=== PATIENT | female | born 1965 | race Caucasian/White ===

== ENCOUNTER → 2021-05-26 12:54 | Outpatient (BNVA) | payer OTHER, SELFPAY | PROVIDERS: PCP Internal Medicine; Referring Provider Internal Medicine; Visit Provider Physician Assistant ==

== ENCOUNTER → 2021-06-19 08:13 | Outpatient (BNVA) | payer OTHER, SELFPAY | PROVIDERS: PCP Internal Medicine; Visit Provider Surgery ==

== ENCOUNTER 2021-06-30 09:17 | Outpatient (REF) | payer OTHER, SELFPAY ==
--- NOTE | 2021-06-30 09:27 | ECG_ITS ---
Test Reason : TYPE 2 DM Blood Pressure : / mmHG Vent. Rate : 086 BPM Atrial Rate : 086 BPM P-R Int : 148 ms QRS Dur : 100 ms QT Int : 388 ms P-R-T Axes : 019 035 028 degrees QTc Int : 464 ms Normal sinus rhythm Inferior infarct , age undetermined Abnormal ECG No previous ECGs available Referred By: Tony Ferrara Electronically Signed By:JENN KELLEY MD
[2021-06-30 09:36] LABS: MANUAL DIFF FLAG NO
[2021-06-30 09:52] LABS: Basophils Percent Auto 0.4 % (0-2); Eosinophils Absolute Auto 0.1 X10*3/uL (0.0-0.4); Eosinophils Percent Auto 1.5 % (0-4); Hematocrit 39.9 % (37.0-47.0); Hemoglobin 12.7 g/dl (12.0-16.0); Imm Gran Abs Auto 0.05 X10*3/uL (0.00-0.03); Imm Gran Pct Auto 0.5 % (0.0-0.4); Lymphocytes Absolute Auto 2.8 X10*3/uL (1.2-4.9); Lymphocytes Percent Auto 29.9 % (20-40); Mean Corpuscular HGB Conc 31.8 g/dl (31.0-35.0); Mean Corpuscular Hemoglobin 27.4 pg (27.0-33.0); Mean Corpuscular Volume 86.2 fL (80.0-98.0); Mean Platelet Volume 10.2 fL (9.4-12.3); Monocytes Absolute Auto 0.5 X10*3/uL (0.1-1.2); Monocytes Percent Auto 5.2 % (2-11); Neutrophils Absolute Auto 5.9 x10*3/uL (2.0-8.3); Neutrophils Percent Auto 62.5 % (45-73); Platelet Count 298 X10*3/uL (160-400); Red Blood Count 4.63 X10*6/uL (4.20-5.50); Red Cell Distribution Width 13.8 % (11.0-16.0); White Blood Count 9.4 X10*3/uL (4.8-10.8)
[2021-06-30 10:42] LABS: Alanine Aminotransferase 12 U/L (0-31); Alkaline Phosphatase 103 U/L (39-117); Anion Gap 13 (12-20); Aspartate Amino Transferase 12 U/L (5-31); Bilirubin Total 0.5 mg/dL (0.0-1.0); Blood Urea Nitrogen 28 mg/dL (9-16); C Reactive Protein 3.62 mg/dL (< or = 0.50); Calcium 10.2 mg/dL (8.4-10.2); Carbon Dioxide 26 mmol/L (22-29); Chloride 102 mmol/L (96-108); Cholesterol 118 mg/dL; Estimated Glomerular Filt Rate > 60; Glucose Random 262 mg/dL (60-115); HDL Cholesterol 35 mg/dL; Iron 66 mcg/dL (30-160); LDL Cholesterol Calculated 58 mg/dl; Percent Iron Saturation 21 % (15-50); Potassium 4.6 mmol/L (3.3-5.1); Sodium 136 mmol/L (135-145); Total Iron Binding Capacity 312 mcg/dL (228-428); Total Protein 7.4 g/dL (6.5-8.0); Triglycerides 129 mg/dL; Unsaturated Iron Binding 246 ug/dL
[2021-06-30 11:08] LABS: Ferritin 254 ng/mL (10-250); TSH reflex Free T4 1.89 uIU/mL (0.32-4.0); Vitamin D 25-OH Total 23.8 ng/mL (>30)
[2021-06-30 11:15] LABS: Estimated Average Glucose 212 mg/dL
[2021-06-30 12:11] LABS: Insulin 14 uU/mL (2-29)
[2021-06-30 13:07] LABS: Folate 13.3 ng/mL (> or = 4.0); Vitamin B12 386 pg/mL (200-900)
[2021-07-01 14:23] LABS: H Pylori Breath Test Negative (Negative)
[2021-07-02 12:37] LABS: Calcium (PTHI) 10.2 mg/dL (8.6-10.4); PTHI 29 pg/mL (14-64)
[2021-07-05 00:07] LABS: Zinc 71 mcg/dL (60-130)
[2021-07-06 11:46] LABS: Vitamin A 64 mcg/dL (38-98)
[2021-07-06 14:05] LABS: Vitamin B1 15 nmol/L (8-30)
== END 2021-06-30 09:18 | disposition home or self-care (01) ==
LOC: HO.LAB 09:17
PROVIDERS: Visit Provider Surgery
DX: E11.9 Type 2 diabetes mellitus without complications (principal); E66.01 Morbid (severe) obesity due to excess calories; E78.5 Hyperlipidemia, unspecified; I10 Essential (primary) hypertension; Z79.4 Long term (current) use of insulin
CPT/HCPCS: 36415; 80053; 80061; 82306; 82607; 82728; 82746; 83013; 83036; 83525; 83540; 83970; 84425; 84443; 84590; 84630; 85025; 86140; 93005; 99211

== ENCOUNTER → 2021-07-17 08:14 | Outpatient (BNVA) | payer OTHER, SELFPAY | PROVIDERS: PCP Internal Medicine; Visit Provider Surgery | DX: Z13.89 Encounter for screening for other disorder (principal) ==

== ENCOUNTER → 2021-07-18 08:13 | Outpatient (BNVA) | payer OTHER, SELFPAY | PROVIDERS: PCP Internal Medicine; Visit Provider Dietitian, Registered | DX: E66.01 Morbid (severe) obesity due to excess calories (principal); E11.9 Type 2 diabetes mellitus without complications; Z79.4 Long term (current) use of insulin; Z68.41 Body mass index [BMI] 40.0-44.9, adult | CPT/HCPCS: 97802 ==

== ENCOUNTER 2021-08-01 09:39 | Outpatient (REF) | payer OTHER, SELFPAY ==
--- NOTE | ~2021-08-01 | XR_ITS ---
EXAMINATION: XR CHEST CLINICAL INFORMATION: Obesity COMPARISON: None TECHNIQUE: 2 views of the chest were obtained. FINDINGS: No significant abnormality is noted involving the heart, lungs, mediastinum, bony thorax or soft tissues. XR/XR chest 2V IMPRESSION: Unremarkable examination.
--- NOTE | ~2021-08-01 | FL_ITS ---
EXAMINATION: XR FLUOROSCOPY UPPER GI WITH AIR CLINICAL INFORMATION: Obesity COMPARISON: None TECHNIQUE: Upper GI was performed using thin and thick barium and effervescent granules FINDINGS: There is a small sliding-type hiatal hernia. There is mild gastroesophageal reflux. The stomach and duodenum are normal-appearing. No fold thickening, mass, ulcer or stricture is seen. FLUOROSCOPY TIME: 0.5 minutes DOSE AREA PRODUCT: 4.8 Magana per centimeter squared. 20 saved fluoroscopic images. FL/FL upper GI w air IMPRESSION: Mild gastroesophageal reflux and small sliding-type hiatal hernia.
--- NOTE | ~2021-08-01 | US_ITS ---
EXAMINATION: US COMPLETE ABDOMEN WITH LIVER ELASTOGRAPHY CLINICAL INFORMATION: Diabetes and obesity. COMPARISON: None TECHNIQUE: Real-time imaging of the abdominal viscera. Noninvasive ultrasound liver fibrosis assessment is performed using Chapo ElastPQ point quantification shear wave elastography (2D-SWE) with a C5-2 MHz transducer. Multiple elastography samples are obtained. FINDINGS: PANCREAS: Visualized head and the body of the pancreas is unremarkable. The tail is not visualized. ABDOMINAL AORTA: The proximal, middle, and distal aortic segments are normal in caliber. INFERIOR VENA CAVA: Visualized portions are normal. LIVER: Normal. The liver demonstrates normal size, contour and echogenicity. No focal lesion or intrahepatic biliary duct dilatation. The right lobe measures 15.8 cm in length. The left lobe measures 11.5 cm in length. Portal flow is hepatopedal. Shear wave liver elastography median stiffness is 1.53 m/s (reference: normal median stiffness is 1.3 m/s or less). IQR/median stiffness to assess sampling precision is 0.21 (reference: good quality data set is IQR/median stiffness of 0.15 or less). GALLBLADDER: Normal. The gallbladder is physiologically distended without evidence of stones, sludge, polyps, wall thickening or pericholecystic fluid. COMMON BILE DUCT: Normal in caliber measuring 0.3 cm in diameter. RIGHT KIDNEY: There is mild pelvic fullness. No hydroureteronephrosis seen. No renal calculi or focal parenchymal lesions. The kidney measures 11.6 cm in maximum dimension. LEFT KIDNEY: Normal. No hydronephrosis. No renal calculi or focal parenchymal lesions. The kidney measures 10.4 cm in maximum dimension. SPLEEN: Normal. The spleen measures 11.8 cm in maximum dimension. FREE FLUID: None. US/US abdomen comp w elastography IMPRESSION: 1. Mild pelvic fullness right kidney. No echogenic stones. Partially visualized pancreas is unremarkable. 2. Liver elastography: Median liver stiffness 1.53 m/s suggestive of cACLD ruled out. REFERENCE: Society of Radiologists in Ultrasound Liver Stiffness Thresholds (2020): LIVER STIFFNESS THRESHOLDS: *Liver Stiffness equal or less than 1.3 m/s: High probability of being normal. *Liver Stiffness less than 1.7 m/s: In the absence of other known clinical signs, rules out compensated advanced chronic liver disease. *Liver Stiffness 1.7-2.1 m/s: Suggestive of compensated advanced chronic liver disease but need further test for confirmation. *Liver Stiffness over 2.1 m/s: Rules in compensated advanced chronic liver disease. *Liver Stiffness over 2.4 m/s: Suggestive of clinically significant portal hypertension. QUALITY OF DATA SET: *IQR/Median value equal or less than 0.15 implies a quality data set. *IQR/Median value over 0.15 implies a poor quality data set. SIGNIFICANT CHANGE FROM PRIOR EXAM: Significant change if liver stiffness measurement is 10% or greater from prior exam. OTHER CONSIDERATIONS: The stage of liver fibrosis may be overestimated in the setting of acute hepatitis, liver inflammation, elevated liver function tests, hepatic vascular congestion, obstructive cholestasis, non-fasting state, and infiltrative diseases such as amyloidosis and lymphoma. In some patients with NAFLD, the liver stiffness thresholds for compensated advanced chronic liver disease may be lower. In causes other than viral hepatitis and NAFLD, liver stiffness thresholds are not well established.
== END 2021-08-01 09:40 | disposition home or self-care (01) ==
LOC: HO.US 09:39
PROVIDERS: Visit Provider Surgery
DX: E11.9 Type 2 diabetes mellitus without complications (principal); E66.01 Morbid (severe) obesity due to excess calories; E78.5 Hyperlipidemia, unspecified; I10 Essential (primary) hypertension; Z79.4 Long term (current) use of insulin
CPT/HCPCS: 71046; 74246; 76705; 76981

== ENCOUNTER → 2021-08-18 08:06 | Outpatient (BNVA) | payer OTHER, SELFPAY | PROVIDERS: PCP Internal Medicine; Referring Provider Surgery; Visit Provider Dietitian, Registered | DX: E66.01 Morbid (severe) obesity due to excess calories (principal); Z68.41 Body mass index [BMI] 40.0-44.9, adult | CPT/HCPCS: 97803 ==

== ENCOUNTER → 2021-09-20 11:10 | Outpatient (BNVA) | payer OTHER, SELFPAY | PROVIDERS: PCP Internal Medicine; Referring Provider Surgery; Visit Provider Dietitian, Registered | DX: E66.01 Morbid (severe) obesity due to excess calories (principal); Z68.41 Body mass index [BMI] 40.0-44.9, adult | CPT/HCPCS: 97803 ==

== ENCOUNTER → 2021-09-29 07:42 | Outpatient (REF) | payer OTHER, SELFPAY ==
--- NOTE | 2021-09-29 07:49 | CA_ITS ---
Transthoracic Echocardiogram Patient (Last, First, Middle): Alka Cabrales J Gender: Female Date of : 1965 Age: 56 Procedure Date: 09/29/2021 Procedure Type: Transthoracic Echocardiogram Location: OP Height: 162.56 cm Weight: 107.05 kg BSA: 2.10 m2 Heart Rate: bpm BP: 136 / 70 mmHg Cnmt: CHRISTOPHER Referring MD: Tony Ferrara MD Symptoms: R94.31 - Abnormal electrocardiogram [ECG] [EKG] Study Quality: Fair/Contrast ECG Rhythm: Sinus Conclusions: - The left ventricular systolic function is normal. The calculated ejection fraction is 59% by biplane method. - There is evidence of regional wall motion abnormalities. - No obvious valvular pathology seen on this study. Findings Procedure Information Contrast agent, definity, is being given per protocol without apparent complications. Left Ventricle Normal left ventricular cavity size. There is mildly increased left ventricular wall thickness. The left ventricular systolic function is normal. The calculated ejection fraction is 59% by biplane method. There is evidence of regional wall motion abnormalities. Diastolic function is normal for age. Wall Motion Rest Echo Findings The mid inferior segment is hypokinetic. The basal inferior segment is akinetic. Right Ventricle Normal right ventricular cavity size and systolic function. Atria Both atria are normal in size. Aortic Valve There is a normal trileaflet aortic valve. There is no aortic valve stenosis. There is no aortic valve regurgitation. Mitral Valve The mitral valve appears normal. There is no mitral valve regurgitation. There is no mitral valve stenosis. Pulmonic Valve The pulmonic valve was not well visualized. Tricuspid Valve There is no tricuspid valve regurgitation. Tricuspid regurgitation envelope is inadequate for calculation of right ventricular systolic pressure. Great Vessels The aortic annulus, sinuses of valsalva, asc aorta, and aortic arch are normal in size. Venous The inferior vena cava is normal in size. Pericardium/Pleural There is no evidence of pericardial effusion. Prior Study Comparison No prior study available for comparison. Recommendations, Care & Conclusions No obvious valvular pathology seen on this study. Measurements 2D Linear Measurements IVSd: 1.04 0.6-0.9/0.6-1.0 cm LVIDd: 3.92 3.9-5.3/4.2-5.9 cm LVIDd Index: 1.87 2.4-3.2/2.2-3.1 cm/m2 LVIDs: 2.79 2.0-3.6 cm LVPWd: 1.03 0.7-1.1 cm LA Diam: 3.40 2.7-3.8/3.0-4.0 cm LAIDs Index: 1.62 1.5-2.3 cm/m2 LV Mass: 160.87 67-162/88-224 g LV Mass Index: 76.61 43-95/49-115 g/m2 LVOT Diam: 2.10 3.0+(-)1.3 cm 2D Systolic Function EF 4C: 61.60 >55% EF 2C: 55.60 >55% EF BiP: 58.70 >55% Mitral Valve MV Pk E: 1.04 MV PK A: 0.96 MV Decel Time: 99.00 E/A: 1.10 E'Lateral: 11.50 E'Medial: 7.94 E/E' Med: 13.10 E/E' Lat: 9.00 PHT: 29.00 MVA PHT: 7.59 Decel Nash: 10.45 Aortic Valve AoV Pk Francisco Javier: 1.58 AoV Mn Francisco Javier: 1.10 AoV VTI: 0.33 AoV Pk Grad: 10.00 Aov Mn Grad: 5.00 MERARY Cont.VTI: 2.29 LVOT LVOT Pk Francisco Javier: 0.91 LVOT Mn Francisco Javier: 0.65 LVOT VTI: 0.22 LVOT Pk Grad: 3.00 LVOT Mn Grad: 2.00 LVOT Diam: 2.10 LVOT Area: 3.46 Diastolic Function MV Pk E: 1.04 MV Pk A: 0.96 E/A: 1.10 E'Medial: 7.94 E/E' Med: 13.10 E' Laterial: 11.50 E/E' Lat: 9.00 Right Ventricle TAPSE (mm): 19.50 TVS' Francisco Javier: 13.20 Tricuspid Valve RA Press: 3.00 Great Vessels Aorta Ao Asc: 2.60 2.1-3.4 cm Ao Arch: 2.20 Updated in Other Vendor System with Status of Final Arik Fernandez MD electronically signed on 09/30/2021 2:48:25 PM with status of Final
== END ==
LOC: HO.CARD 07:42
PROVIDERS: Visit Provider Surgery
DX: R94.31 Abnormal electrocardiogram [ECG] [EKG] (principal)
CPT/HCPCS: 93306; Q9957

== ENCOUNTER → 2021-10-04 08:08 | Outpatient (REF) | payer OTHER, SELFPAY ==
--- NOTE | ~2021-10-04 | NM_ITS ---
Lexiscan Myocardial perfusion study Indication: Preoperative cardiovascular evaluation Technique: The patient was brought in for a Lexiscan perfusion study on 10/04/2021 and was injected 0.4 mg of Lexiscan intravenously. Within a minute of this injection 40 mCi of sestamibi was given intravenously. Images were obtained using the SPECT gamma camera interlaced with the gating device. Images were obtained in supine position. Resting perfusion study was performed on 10/05/2021. Patient was administered 40 mCi of sestamibi intravenously at rest. Images were then obtained in supine position. Total DLP 168mGy-cm. Images were processed with the software and compared side to side in short axis, horizontal long axis and vertical long axis views. Findings: Raw acquisition was reviewed. The stress perfusion study showed severely diminished to absent tracer uptake along the inferior wall. There is not much improvement with CT attenuation correction. The gated study shows diminished LV systolic function with calculated LVEF of 44%. LV cavity is normal in size. The gated study shows inferior akinesis. Resting study shows markedly diminished tracer uptake along the inferior wall. Gating at rest reveals inferior akinesis with ejection fraction at 44%. The findings are consistent with mostly fixed inferior perfusion defect with minimal reversibility. NM/NM roya perf SPECT rest & str Impression: 1. Myocardial perfusion imaging study shows inferior myocardial infarction with minimal ischemia. 2. Gated LVEF is 44% during stress and rest. 3. Transient ischemic dilatation not present. EKG component of the test reported separately.
--- NOTE | 2021-10-04 08:12 | CA_ITS ---
Acquisition Time: 2021-10-04 08:35:33 Total Exercise Time: 00:02:00 Test Indications: Abnormal ECG Medications: ATORVASTATIN EMPAGLIFLOZIN INSULIN LISINOPRIL METFORMIN Protocol: LEXISCAN Max HR: 118 BPM 71% of Pred: 166 BPM Max BP: 142/068 mmHG Max Work Load: 1.0 METS Pharmacological stress test with Lexiscan injection, while sitting and kicking her legs, without anginal symptoms, without arrythmia, with normotensive response to injection, with nondiagnostic EKG for ischemia. In recovery she reported dizziness that was treated with Aminophylline 75mg IVP to reverse Lexiscan with resolution of symptom. Nuclear images pending. Test reviewed with Dr Conde. Referred By: Tony Ferrara Overread By: EMERSON CELESTIN
== END ==
LOC: HO.CARD 08:08
PROVIDERS: Visit Provider Surgery
DX: R94.31 Abnormal electrocardiogram [ECG] [EKG] (principal)
CPT/HCPCS: 78452; 93017; A9500; J0280; J2785

== ENCOUNTER 2022-03-01 08:14 | Outpatient (REF) | payer OTHER, SELFPAY ==
[2022-03-01 10:03] LABS: INTERNATIONAL NORM RATIO 0.9 (0.9-1.1); Prothrombin Time 10.5 SEC (10.0-13.1)
[2022-03-01 10:16] LABS: Anion Gap 18 (12-20); Blood Urea Nitrogen 17 mg/dL (9-16); Calcium 9.9 mg/dL (8.4-10.2); Carbon Dioxide 22 mmol/L (22-29); Chloride 102 mmol/L (96-108); Estimated Glomerular Filt Rate > 60; Glucose Random 273 mg/dL (60-115); Potassium 4.1 mmol/L (3.3-5.1); Sodium 138 mmol/L (135-145)
[2022-03-01 13:49] LABS: Hematocrit 40.1 % (37.0-47.0); Hemoglobin 13.3 g/dl (12.0-16.0); Mean Corpuscular HGB Conc 33.2 g/dl (31.0-35.0); Mean Corpuscular Hemoglobin 27.9 pg (27.0-33.0); Mean Corpuscular Volume 84.1 fL (80.0-98.0); Mean Platelet Volume 10.6 fL (9.4-12.3); Platelet Count 316 X10*3/uL (160-400); Red Blood Count 4.77 X10*6/uL (4.20-5.50); Red Cell Distribution Width 14.6 % (11.0-16.0); White Blood Count 8.4 X10*3/uL (4.8-10.8)
== END 2022-03-01 08:15 | disposition home or self-care (01) ==
LOC: HO.LAB 08:14
PROVIDERS: PCP Internal Medicine; Referring Provider Surgery; Visit Provider Internal Medicine
DX: Z01.818 Encounter for other preprocedural examination (principal); I25.10 Atherosclerotic heart disease of native coronary artery without angina pectoris; E66.01 Morbid (severe) obesity due to excess calories; I10 Essential (primary) hypertension; E78.5 Hyperlipidemia, unspecified; E11.9 Type 2 diabetes mellitus without complications; Z79.4 Long term (current) use of insulin
CPT/HCPCS: 36415; 80048; 85027; 85610; 93005; 99202

== ENCOUNTER → 2022-05-22 14:36 | Outpatient (BNVA) | payer OTHER, SELFPAY | PROVIDERS: PCP Internal Medicine; Visit Provider Nurse Practitioner Family | DX: I25.10 Atherosclerotic heart disease of native coronary artery without angina pectoris (principal); I25.2 Old myocardial infarction; I10 Essential (primary) hypertension; E78.5 Hyperlipidemia, unspecified; Z98.890 Other specified postprocedural states | CPT/HCPCS: 99212 ==

== ENCOUNTER → 2022-09-10 14:26 | Outpatient (BNVA) | payer MEDICAID, SELFPAY | PROVIDERS: PCP Physician Assistant; Referring Provider Internal Medicine; Visit Provider Internal Medicine | DX: I25.10 Atherosclerotic heart disease of native coronary artery without angina pectoris (principal); I10 Essential (primary) hypertension; E11.9 Type 2 diabetes mellitus without complications; E66.01 Morbid (severe) obesity due to excess calories; Z68.41 Body mass index [BMI] 40.0-44.9, adult; Z79.4 Long term (current) use of insulin; Z79.82 Long term (current) use of aspirin | CPT/HCPCS: 99212 ==

== ENCOUNTER 2023-04-12 12:41 | Outpatient (AMB) | payer MEDICAID, SELFPAY ==
[2023-04-12 12:57] VITALS: BP 140/62; PULSE 71; BMI 42.9
--- NOTE | 2023-04-12 12:57 | A.OFFVIS_ITS ---
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 Press Set Up Operator Required: Yes Gravure Press Set Up Operator Language: Set Up Mechanic Stamping Machines Name: melody [id number] YAHIR Allergies No Known Allergies Allergy (Verified 04/12/23 13:00) Medication List - Last Reconciled 04/12/23 by Mercedes Rosario NP-C aspirin 81 mg PO DAILY atorvastatin 20 mg PO DAILY empagliflozin (Jardiance) 10 mg PO DAILY insulin regular human (Humulin R Regular U-100 Insulin) 20 units subcut BID metformin 500 mg PO BID metoprolol succinate ER 25 mg PO DAILY metoprolol succinate ER 25 mg PO DAILY oxycodone 5 mg PO Q4H PRN senna mg PO HPI 6 month follow up HPI Details Alka is a 57-year-old female with past medical history of morbid obesity, hypertension, hyperlipidemia, diabetes, LAD stent who presents for follow up. Today she reports that she was seen in the [facility] emergency room in January with shock-like sensations to her left chest and arm. She ruled out for ACS at that time. Since then she has not had recurrent symptoms. She denies chest discomfort at rest or with activity. No heart palpitations, shortness of breath, presyncope, syncope, PND, orthopnea or edema. She is taking her meds as directed. She is mostly sedentary and does not engage in any routine physical activity. Family member present. 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 [facility], LAT[facility] Medical History Insulin dependent type 2 diabetes mellitus Hypertension Hyperlipidemia Morbid obesity Surgical History Status post cardiac catheterization Hx of vaginal surgery Family History Mother Kidney disease Father No problems noted. Sister Cervical cancer Social History Alcohol intake: never Patient Tobacco Use Status: Never used Tobacco Review of Systems Const All systems reviewed & are unremarkable except as noted in HPI and below ENT Denies dizziness Card Denies chest pain, Denies chest pain at rest, Denies chest pain with activity, Denies rapid heart rate, Denies pedal edema, Denies edema, Denies leg edema, Denies lightheadedness, Denies palpitations, Denies dyspnea, Denies dyspnea on exertion and Denies orthopnea Resp Denies cough, Denies dyspnea and Denies dyspnea on exertion GI Denies hematochezia and Denies change in stool character Musc Denies abnormal gait, Denies limited range of motion, Denies muscle cramps, Denies muscle weakness, Denies numbness, Denies radiating pain into limb, Denies stiffness and Denies tingling Neuro Denies abnormal gait, Denies dizziness, Denies numbness and Denies tingling Endo Denies palpitations Physical Exam Vital Signs: Last Vital Signs Pulse 71 04/12/23 12:57 BP 140/62 H 04/12/23 12:57 BMI result Body Mass Index 42.9 Const Other: morbidly obese General: cooperative, comfortable and no acute distress Orientation/consciousness: patient oriented x3 Neck Neck: Yes normal visual inspection Resp Effort & Inspection: normal respiratory effort Auscultation: clear to auscultation bilaterally, no rales, no rhonchi and no wheezes Cardio Jugular venous distension: no JVD Rate: regular rate Rhythm: regular rhythm Heart sounds: S1 normal heart sound present, S2 normal heart sound present, no murmurs and no rubs Neuro General: patient oriented x3 Extrem General: Yes normal to inspection Psych Appearance: grossly normal Mental Status: mental status grossly normal Speech and movement: Normal speech and movement present Office Procedures EKG Details: Today, read by me, normal sinus rhythm, possible inferior infarct, age undetermined, rate 71, QTC 458 milliseconds [id number], Complete Assessment & Plan Assessment & Plan (1) Status post cardiac catheterization: Comment: 03/20/22 @ [facility] -proximal to mid LAD 75-80% stenosis inter 1st diagonal, RCA 40- 50% stenosis, distal RCA occluded with left to right collaterals, 50% mid left circumflex stenosis. MIGUEL ANGEL placed to the mid to proximal LAD Code(s): Z98.890 - Other specified postprocedural states Plan: Had echocardiogram done 09/29/2021 as part of preop evaluation for bariatric surgery. It showed EF 59%, evidence of regional wall motion abnormality. A pharmacological nuclear stress test was done on 10/05/2021 showing inferior infarct, EF 44%, t.i.d. not present. Evidence of prior KS. She underwent a cardiac catheterization on 03/20/2022 showing significant stenosis in the proximal to mid LAD, moderate stenosis of the RCA and mid circumflex. She has an occluded distal RCA with collaterals. A MIGUEL ANGEL was placed to the proximal to mid LAD. She was seen in the [facility] Emergency Room 02/05/2023 for chest discomfort, atypical and ruled out for ACS. She stop Plavix in February, 1 year from stent. Today she reports that she has not had recurrent shock-like sensations to her chest and arm. She is mostly sedentary. She is taking her meds as directed. Continue aspirin 81 mg daily. Continue metoprolol XL 25 mg daily. Continue atorvastatin 20 mg daily with [place] LDL goal less than 70. Last labs in our system from 06/30/2021 show LDL 58. Cardiology follow-up in 6 months, sooner if needed (2) Atherosclerotic cardiovascular disease: Code(s): I25.10 - Atherosclerotic heart disease of [place] coronary artery without angina pectoris Plan: As above (3) Hypertension: Code(s): I10 - Essential (primary) hypertension Qualifiers: Hypertension type: primary hypertension Qualified Code(s): I10 - Essential (primary) hypertension Plan: Near goal at present. No med changes made (4) Hyperlipidemia: Code(s): E78.5 - Hyperlipidemia, unspecified Plan: Continue statin. Should have updated fasting lipid with next lab draw (5) Morbid obesity: Code(s): E66.01 - Morbid (severe) obesity due to excess calories Plan: Benefits of weight loss reviewed. No longer interested in the bariatric program. 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 has occluded distal RCA with collaterals Plan Time spent on chart review, documentation, interview and assessment Coding Level of Care Code Est Pt Level 4 (30362) Diagnoses Status post cardiac catheterization Z98.890 Atherosclerotic cardiovascular disease I25.10 Primary hypertension I10 Hypertension type: primary hypertension Hyperlipidemia E78.5 Morbid obesity E66.01 Stented coronary artery Z95.5 Old [place] (myocardial infarction) I25.2 CPT Codes EKG - CPT: [id number], Complete ([id number]) Time Spent (min) 28
== END 2023-04-12 13:26 | disposition home or self-care (01) ==
PROVIDERS: PCP Physician Assistant; Visit Provider Nurse Practitioner Family
DX: I25.10 Atherosclerotic heart disease of native coronary artery without angina pectoris (principal); Z98.890 Other specified postprocedural states; I10 Essential (primary) hypertension; E78.5 Hyperlipidemia, unspecified; I25.2 Old myocardial infarction; Z95.5 Presence of coronary angioplasty implant and graft; E66.01 Morbid (severe) obesity due to excess calories
CPT/HCPCS: 93010; 99214

== ENCOUNTER → 2023-04-12 12:41 | Outpatient (BNVA) | payer MEDICAID, SELFPAY | PROVIDERS: PCP Physician Assistant; Visit Provider Nurse Practitioner Family | DX: I25.10 Atherosclerotic heart disease of native coronary artery without angina pectoris (principal); I10 Essential (primary) hypertension; E78.5 Hyperlipidemia, unspecified; E66.01 Morbid (severe) obesity due to excess calories; I25.2 Old myocardial infarction; Z95.5 Presence of coronary angioplasty implant and graft; Z98.890 Other specified postprocedural states | CPT/HCPCS: 93005; 99212 ==